=== PATIENT | female | born 1950 | race Caucasian/White ===

== ENCOUNTER → 2016-10-03 | Outpatient (CLI) | payer BC ==
--- NOTE | 2016-10-03 12:45 | MAMMOGRAPHY REPORT ---
BILATERAL DIGITAL DIAGNOSTIC MAMMOGRAM TOMOSYNTHESIS WITH CAD: 10/03/2016 CLINICAL HISTORY: 12 month follow-up of left breast calcifications. Due for routine mammography of t he right breast. The patient has no current complaints. TECHNIQUE: Breast tomosynthesis in addition to standard 2D mammography was performed. Current study was also evaluated with a Computer Aided Detection (CAD) system. Bilateral CC and MLO 2-D and tomosy nthesis images and spot magnification left CC and ML views were obtained. COMPARISON: Comparison is made to exams dated: 09/28/2015 mammogram, 03/30/2015 mammogram, 09/07/2014 heather reotactic biopsy, 08/30/2014 mammogram, 08/30/2014 ultrasound, and 08/25/2014 mammogram - [facility]. BREAST COMPOSITION: The tissue of both breasts is heterogeneously dense, which may obscure small mas ses. FINDINGS: Spot magnification views again demonstrate multiple similar-appearing groups of faint punc duval benign-appearing calcifications throughout the left breast, not significantly changed dating carrie k to the March 2015 exam. Many of the clusters are also stable compared to spot magnification view s dated 08/30/2014, although there are technical differences between the 2 exams which makes it diffic ult to confirm true stability. The calcifications are probably benign and likely represent fibrocyst ic changes. The remainder of both breasts demonstrate no suspicious masses, calcifications, or areas of sql data architect ural distortion. Previously seen circumscribed benign appearing mass in the left superior anterior b reast is decreased and no longer clearly evident, consistent with a benign cyst. IMPRESSION: ACR-BI-RADS CATEGORY 3: PROBABLY BENIGN Multiple groupings of punctate benign-appearing calcifications in the left breast are stable dating b ack to the March 2015 and likely also the August 2014 exam, and are probably benign and likely repres ent fibrocystic changes. Recommend bilateral diagnostic tomosynthesis mammograms in 12 months, to re evaluate the left breast calcifications and for routine mammography of the right breast. The patient has been verbally notified of the results. Approximately 10% of breast cancers are not detected with mammography. A negative mammographic report should not delay biopsy if a clinically suggestive mass is present. Anne Elaine M.D. ah/:10/03/2016 11:44:20 Township Supervisor: Merry JAVIER(R)(M), [facility] letter sent: Follow Up Recommended 3 BI-RADS Code: ACR-BI-RADS Category 3: Probably Benign
== END | disposition home or self-care (01) ==
LOC: C.MAMM 10:30
PROVIDERS: ATTEND Physician Assistant
DX: Z09 Encounter for follow-up examination after completed treatment for conditions other than malignant neoplasm (principal); R92.8 Other abnormal and inconclusive findings on diagnostic imaging of breast; R92.1 Mammographic calcification found on diagnostic imaging of breast

== ENCOUNTER → 2017-10-16 | Outpatient (CLI) | payer BC ==
--- NOTE | 2017-10-16 15:40 | MAMMOGRAPHY REPORT ---
BILATERAL DIGITAL DIAGNOSTIC MAMMOGRAM TOMOSYNTHESIS WITH CAD: 10/16/2017 CLINICAL HISTORY: 12 month follow-up of left breast calcifications. Due for routine mammography of th e right breast. The patient reports no new complaints. TECHNIQUE: The study was acquired using full field digital technology and interpreted from soft copy. Breast tomosynthesis in addition to standard 2D mammography was performed. Current study was also ev aluated with a Computer Aided Detection (CAD) system. Bilateral CC and MLO 2D and tomosynthesis imag es and spot magnification left CC and ML views were obtained. COMPARISON: Comparison is made to exams dated: 10/03/2016 mammogram, 09/28/2015 mammogram, 03/30/2015 huyen mogram, 08/30/2014 mammogram, 08/25/2014 mammogram, and 08/30/2014 ultrasound - [facility]. BREAST COMPOSITION: The tissue of both breasts is heterogeneously dense, which may obscure small mass es. FINDINGS: Spot magnification views again demonstrate multiple small similar-appearing groups of faint punctate benign-appearing calcifications within the left breast, predominantly in the anterior and middle dept h, best seen on the cc view. The calcifications are stable on spot magnification views dating back t o at least the March 2015 exam, and are considered benign given the morphology and long-term stabil ity. The remainder of both breasts are not significantly changed, without suspicious masses, calcifi cations, or areas of architectural distortion noted. IMPRESSION: ACR BI-RADS CATEGORY 2: BENIGN Multiple groupings of punctate benign-appearing calcifications in the left breast are stable dating b ack to at least the March 2015 exam and are considered benign given the morphology and long-term st ability. There is no mammographic evidence of malignancy in either breast. A 1 year screening mammog levon is recommended.(10/17/2018) The patient has been verbally notified of the results. Some breast cancers are not detected with mammography. A negative mammographic report should not holli y biopsy if a clinically suggestive mass is present. Anne Elaine M.D. /:10/16/2017 09:11:39 Operations Expert: Kirstin Shelby, [facility] letter sent: Normal 1/2 BI-RADS Code: ACR BI-RADS Category 2: Benign
== END ==
LOC: C.MAMM 08:47
PROVIDERS: ATTEND Family Medicine
DX: R92.1 Mammographic calcification found on diagnostic imaging of breast (principal)